=== PATIENT | male | born 1990 | race Caucasian/White ===

== ENCOUNTER 2020-07-27 18:05 | Emergency (ER) | payer MEDICAID, SELFPAY ==
[2020-07-27 18:25] VITALS: BP 141/79; PULSE 96; RESP 16; TEMP 36.9; O2SAT 97; BMI 25.0
--- NOTE | 2020-07-27 19:00 | ED.SKABFB ---
HPI - Skin/Abscess/Foreign Bdy General Chief complaint: Wound/Laceration Stated complaint: Finger Inj Time Seen by Provider: 07/27/20 18:59 Source: patient Mode of arrival: ambulatory Limitations: no limitations History of Present Illness HPI narrative: [place] right thumb just prior to arrival. Unsure of tetanus vaccination. MD complaint: foreign body Tetanus up to date: no Location: R hand (Right thumb) Severity: mild Relieving factors: none Treatments prior to arrival: none Related Data Previous Rx's Medication Instructions Recorded amoxicillin-pot clavulanate 1 tab PO Q12H 10 Days #20 tab 07/27/20 [Augmentin] Allergies Allergy/AdvReac Type Severity Reaction Status Date / Time No Known Allergies Allergy Unverified 06/04/20 19:07 [No Known Allergies*] Review of Systems Review of Systems: Constitutional: No Weight loss, No Fever, No Chills, No Night Sweats, No Fatigue, No Malaise ENT/Mouth: No Hearing loss, No Ear Pain, No Nasal Congestion, No Sinus Pain, No Hoarseness, No sore throat, No Rhinorrhea, No Swallowing Difficulty Eyes: No Eye Pain, No Swelling, No Redness, No Foreign Body, No Discharge, No Vision Changes Cardiovascular: No Chest Pain, No SOB Respiratory: No Cough, No Sputum, No Wheezing, No Smoke Exposure, No Dyspnea Musculoskeletal: No joint pain, No Myalgias, No Joint Swelling Skin: No Skin Lesions, No rash Neuro: No Weakness, No Numbness, No Paresthesias, No Loss of Consciousness, No Dizziness, No Headache Psych: No Anxiety/Panic, No Depression Heme/Lymph: No Bruising, No Bleeding,No Lymphadenopathy Endocrine: No Polyuria, No Polydipsia, No Temperature Intolerance Yes all other systems are reviewed and are negative [facility] Past Medical History Attestation statement: The following information was validated with the patient. Social History Social History Advance Directives: No Advance Directives Information Provided: No Physical Exam Vital Signs: Vital Signs: Last Vital Signs Temp 98.4 F 07/27/20 18:25 Pulse 96 07/27/20 18:25 Resp 16 07/27/20 18:25 BP 141/79 H 07/27/20 18:25 Pulse Ox 97 07/27/20 18:25 Body Mass Index 25.0 reviewed Const: General: cooperative and healthy appearing; No acute distress or intoxicated appearing Nutritional Appearance: average body habitus Orientation/consciousness: patient oriented x3 HENMT: Head: Yes normal to inspection Ears: hearing grossly normal bilaterally Eyes: General: appearance normal, both eyes and all related structures Visual Chris: normal visual chris by confrontation Neck: Neck: Yes normal visual inspection and No tender Thyroid: Thyroid normal Chest: Chest palpation & inspection: normal inspection of the chest Resp: Effort & Inspection: normal respiratory effort Cardio: Jugular venous distension: no JVD : General: Yes no CVA tenderness Back/Spine/Pelvis: Back: no CVA tenderness Skin: General skin exam: no rashes or lesions noted Neuro: General: patient oriented x3 Extrem: General: Yes normal to inspection Procedures Foreign Body Removal Site: right (Right thumb) Description of foreign body: fish hook Technique: manual removal (Digital block performed and fishhook easily fed through and removed with ease and fully intact.) and removal with forceps Confirmed by:: direct visualization Complications: none Post-procedure exam: awake, alert, normal BP, normal HR and normal O2 sat Neurovascular: normal distal pulse, normal capillary fill, no signs of compartment syndrome and other Discharge Plan Discharge Clinical Impression: Foreign body (FB) in soft tissue Patient Disposition: Home, Self-Care Instructions: Soft Tissue Foreign Body (ED) Additional Instructions: Monitor for any signs of infection including redness, swelling, discharge Take antibiotics as prescribed Today you had a fishhook removed from her right thumb and your started on empiric antibiotics meaning preventative Your given tetanus vaccination Return if any concerns or worse symptoms otherwise follow up with her primary care doctor as instructed Thank you Prescriptions: New amoxicillin-pot clavulanate [Augmentin] 875-125 mg tablet 1 tab PO Q12H 10 Days Qty: 20 RF: 0 Referrals: Camila Virk MD [Primary Care Provider] - 1 week
[2020-07-27] MEDS: Amoxicillin/Potassium Clav 875 MG TABLET PO (19:14)
== END 2020-07-27 19:36 | disposition home or self-care (01) ==
PROVIDERS: Emergency Provider Emergency Medicine; PCP Family Medicine
DX: S60.351A Superficial foreign body of right thumb, initial encounter (principal); S60.311A Abrasion of right thumb, initial encounter; M79.641 Pain in right hand; Z18.12 Retained nonmagnetic metal fragments; Z23 Encounter for immunization
CPT/HCPCS: 20520; 90471; 90715; 99283; 99284

== ENCOUNTER 2021-09-22 23:12 | Outpatient (REF) | payer OTHER, MEDICAID, SELFPAY ==
[2021-09-22 23:45] LABS: COVID-19 Test Negative (Negative)
== END 2021-09-22 23:13 | disposition home or self-care (01) ==
LOC: HO.LAB 23:12
PROVIDERS: Visit Provider Internal Medicine
DX: Z20.822 Contact with and (suspected) exposure to COVID-19 (principal)
CPT/HCPCS: 87635

== ENCOUNTER 2022-02-14 14:15 | Emergency (ER) | payer MEDICAID, SELFPAY ==
[2022-02-14 14:52] VITALS: BP 150/86; PULSE 95; RESP 18; TEMP 36.8; O2SAT 98; BMI 25.2
--- NOTE | 2022-02-14 14:55 | ED.GENADULT ---
HPI - General Adult General Chief complaint: Animal Bite Stated complaint: Animal Bite (Racoon) Hand 22 Hrs Ago Time Seen by Provider: 02/14/22 14:54 Source: patient Mode of arrival: ambulatory Limitations: no limitations History of Present Illness HPI narrative: Patient is a 31 year old male presenting to the emergency department today after being bit by a raccoon on the left hand. Patient states that there is a neighborhood raccoon that he is normally friendly with and sees during the day often however, approximately 22 hours ago, that raccoon charged him while he was trying to feed it. Patient states that he got bit/scratched on the left hand. Patient states he is not sure of his last tetanus shot. Patient denies any dizziness, lightheadedness, abdominal pain, nausea, vomiting, fever, chills, blurry vision, double vision, loss of vision, chest pain, difficulty breathing, shortness of breath, back pain, night sweats, pain with urination, increased urinary frequency, increased urinary urgency, blood in his urine or stool, syncope or a near syncopal episode, bowel incontinence, bladder incontinence, bowel retention, bladder retention, or any other complaints at this time.? Onset (ago): hour(s) Location: left and upper extremity Relieving factors: none Exacerbating factors: none Associated symptoms: denies other symptoms Treatments prior to arrival: none Related Data Previous Rx's Medication Instructions Recorded amoxicillin 875 mg-potassium 1 tab PO Q12H 10 Days #20 tab 07/27/20 clavulanate 125 mg tablet (Augmentin) amoxicillin 875 mg tablet 875 mg PO BID 7 Days #14 tab 02/14/22 Allergies Allergy/AdvReac Type Severity Reaction Status Date / Time No Known Allergies Allergy Verified 02/14/22 14:54 [No Known Allergies*] Review of Systems Constitutional: Constitutional: Reports no additional constitutional complaints, Denies chills, Denies fever(s) and Denies night sweats Eyes: Eyes: Reports no additional eye complaints, Denies blurry vision, Denies change in vision, Denies diplopia, Denies eye discharge, Denies loss of vision and Denies eye pain ENT: Denies dizziness Cardiovascular: Cardiovascular: Reports no additional cardiovascular complaints, Denies chest pain, Denies lightheadedness, Denies Loss of Consciousness and Denies dyspnea Respiratory: Respiratory: Reports no additional respiratory complaints and Denies dyspnea Gastrointestinal: Gastrointestinal: Reports no additional gastrointestinal complaints, Denies abdominal pain, Denies melena, Denies hematochezia, Denies change in bowel habits and Denies change in stool character Genitourinary: Genitourinary: Reports no additional male genitourinary complaints, Denies hematuria, Denies oliguria, Denies difficulty urinating, Denies dysuria, Denies urinary frequency, Denies urinary hesitancy, Denies urinary incontinence and Denies urinary urgency Musculoskeletal: Musculoskeletal: Reports no additional musculoskeletal complaints, Denies numbness and Denies tingling Neurologic: Denies dizziness, Denies loss of vision, Denies numbness and Denies tingling Psychiatric: Psychiatric: Reports no additional psychiatric complaints Endocrine: Endocrine: Reports no additional endocrine complaints Hematologic/Lymphatic: Hematologic/Lymphatic: Reports no additional hematologic/lymphatic complaints Allergic/Immunologic: Allergic/Immunologic: Reports no additional allergic/immunologic complaints PMFSH Past Medical History Attestation statement: The following information was validated with the patient. Source: old records reviewed Social History Social History Advance Directives: No Advance Directives Information Provided: No Physical Exam ED Vital Signs: Vital Signs - 24 hr 02/14/22 14:52 02/14/22 16:49 Temperature 98.3 F Pulse Rate 95 88 Respiratory Rate 18 16 Blood Pressure 150/86 H 140/82 H Pulse Oximetry 98 99 BMI result Body Mass Index 25.2 Const General: cooperative, no acute distress, alert and awake Nutritional Appearance: well nourished Orientation/consciousness: patient oriented x3 Limitations: no limitations [facility] Head: Yes normal to inspection and Yes atraumatic Ears: hearing grossly normal bilaterally and external ears normal General nose exam: Normal external nose present, no nasal discharge noted and no epistaxis Face and sinus: Yes normal facial exam, No abrasion and No laceration Mouth: Normal oral and palatal mucosa present, no drooling and no muffled voice Eyes General: appearance normal, both eyes and all related structures Periorbital: periorbital findings normal Eyelids: Yes eyelids normal Conjunctivae: conjunctivae normal Pupils: Equal, round and reactive pupils present EOM: EOMs intact bilaterally Neck Neck: Yes normal visual inspection, Yes full ROM and Yes no lymphadenopathy Chest Chest palpation & inspection: normal inspection of the chest Resp Effort & Inspection: normal respiratory effort and able to speak in complete sentences Auscultation: clear to auscultation bilaterally Cardio Rate: regular rate Rhythm: regular rhythm GI Inspection: Yes normal to inspection Neuro General: patient oriented x3 and moves all extremities Cranial nerves: Yes Equal, round and reactive pupils present Cognition (Neuro): normal cognition Motor exam (neuro): 5/5 motor strength present throughout Sensory Exam: Normal double simultaneous stimulation for sensation Coordination: [id number] test normal Extrem General: Yes normal to inspection, Yes full ROM and Yes capillary refill normal Psych Appearance: grossly normal Mental Status: mental status grossly normal Affect: normal affect Attitude: cooperative Thought process: Normal thought process present Thought content: Normal thought content present Insight: Good insight present (Psych) Medical Decision Making MDM Narrative Medical decision making narrative: Patient is a 31 year old male presenting to the emergency department today after a raccoon bite and scratch. Patient's physical exam was unremarkable. I did not visualize any bites or scratches to the patient's left hand however, the patient stated that they were very superficial. I explained my physical exam findings to the patient. I answered all questions asked by the patient. Patient was given rabies vaccination and brought up to date on tetanus. I stressed the importance of the patient taking his medication as prescribed. I stressed the importance of the patient following up with his primary care provider. I stressed the importance of the patient returning to the emergency department immediately if his symptoms were to worsen or if he were to develop any dizziness, shortness of breath, difficulty breathing, chest pain, blurry vision, loss of vision, nausea, vomiting, abdominal pain, fever, chills, back pain, or any other complaints. Patient verbalized agreement and understanding with this treatment plan and discharge. Differential Diagnosis Differential Diagnosis: raccoon bite Medical Records Medical records reviewed: Yes I reviewed the patient's medical records. Discharge Plan Discharge Clinical Impression: Rabies contact Patient Disposition: Home, Self-Care Instructions: Animal Bite (ED) Additional Instructions: Follow up with your primary care provider. Return to the emergency department immediately if your symptoms worsen or if you develop any dizziness, shortness of breath, difficulty breathing, chest pain, blurry vision, loss of vision, nausea, vomiting, abdominal pain, fever, chills, back pain, or any other complaints. Prescriptions: New amoxicillin 875 mg tablet 875 mg PO BID 7 Days Qty: 14 0RF No Action amoxicillin-pot clavulanate [Augmentin] 875-125 mg tablet 1 tab PO Q12H 10 Days Qty: 20 0RF Referrals: Camila Virk MD [Primary Care Provider] - Stand Alone Forms: Work/School Release Interventions: ED Discharge Assessment Last Done: 02/14/22 16:50 Discharge Date/Time: 02/14/22 16:50 Print Language: Slovenian
[2022-02-14] MEDS: LORazepam 1 MG TABLET PO (15:08)
[2022-02-14] MEDS: Rabies Immune Globulin/PF 900 UNIT/3 ML VIAL 1646 UNIT IM (16:09)
[2022-02-14] MEDS: Rabies Vaccine (PCEC)/PF 1 ML VIAL IM (16:10)
[2022-02-14 16:49] VITALS: BP 140/82; PULSE 88; RESP 16; O2SAT 99
--- NOTE | 2022-02-14 16:49 | PC.NURSE ---
rabies vaccine order set faxed to short stay. patient advised to call animal control.
== END 2022-02-14 16:50 | disposition home or self-care (01) ==
PROVIDERS: Emergency Provider Emergency Medicine; PCP Family Medicine
DX: S60.572A Other superficial bite of hand of left hand, initial encounter (principal); W53.81XA Bitten by other rodent, initial encounter; Y93.9 Activity, unspecified; Y92.9 Unspecified place or not applicable; Y99.9 Unspecified external cause status; Z20.3 Contact with and (suspected) exposure to rabies; Z79.899 Other long term (current) drug therapy
CPT/HCPCS: 90375; 90471; 90675; 96372; 99281; 99284

== ENCOUNTER 2022-02-17 07:13 | Outpatient (REF) | payer MEDICAID, SELFPAY | END 2022-02-17 07:14 | disposition home or self-care (01) | LOC: HO.MDS 07:13 | PROVIDERS: Visit Provider Physician Assistant Medical | DX: Z29.14 Encounter for prophylactic rabies immune globulin (principal); S61.452D Open bite of left hand, subsequent encounter; W55.51XD Bitten by raccoon, subsequent encounter; Z20.3 Contact with and (suspected) exposure to rabies | CPT/HCPCS: 90471; 90675 ==

== ENCOUNTER 2022-02-22 07:27 | Outpatient (REF) | payer MEDICAID, SELFPAY | END 2022-02-22 07:28 | disposition home or self-care (01) | LOC: HO.MDS 07:27 | PROVIDERS: Visit Provider Physician Assistant Medical | DX: Z29.14 Encounter for prophylactic rabies immune globulin (principal); S61.452D Open bite of left hand, subsequent encounter; W55.51XD Bitten by raccoon, subsequent encounter; Z20.3 Contact with and (suspected) exposure to rabies | CPT/HCPCS: 90471; 90675 ==

== ENCOUNTER 2022-03-01 07:14 | Outpatient (REF) | payer MEDICAID, SELFPAY | END 2022-03-01 07:15 | disposition home or self-care (01) | LOC: HO.MDS 07:14 | PROVIDERS: Visit Provider Physician Assistant Medical | DX: Z29.14 Encounter for prophylactic rabies immune globulin (principal); S60.572D Other superficial bite of hand of left hand, subsequent encounter; W53.81XD Bitten by other rodent, subsequent encounter; Z20.3 Contact with and (suspected) exposure to rabies | CPT/HCPCS: 90471; 90675 ==

== ENCOUNTER 2023-06-19 14:24 | Outpatient (AMB) | payer OTHER, SELFPAY ==
--- NOTE | 2023-06-19 14:30 | MHC.PC.OV ---
Vital Signs 06/19/23 14:31 Height 5 ft 11 in Weight 185 lb 2 oz BMI 25.8 BP 140/88 H Blood Pressure Location Rt brachial Position Sitting Pulse 96 Pulse Source Pulse Oximeter Pulse Oximetry (%) 99 Oxygen Delivery Method Room Air Intake Visit Reasons: Requesting physical-High Bp-med review Allergies No Known Allergies [No Known Allergies*] Allergy (Verified 06/19/23 14:32) Tobacco use date assessed: 06/19/23 Dental Screening Dental Screen Date: 06/19/23 Did you have a dental visit in the last 12 months?: Yes Did you have a dental problem in the last 6 months where you did not have access to dental care?: No Was dental information given to patient?: Patient has dentist HPI Requesting physical-High Bp-med review HPI Details New pt is here for a PE. Will order labs. Pt's blood pressure is elevated today, likely due to white-coat syndrome. Will have pt monitor his BP at home. Denies chest pain, shortness of breath, headache, dizziness, and blurred vision. Pt would like a therapist due to anxiety and depression. Will have team speak with pt. Denies any SI and HI. PFSH Family History Mother Mental health disorder Maternal Grandmother Mental health disorder Father Mental health disorder Paternal Uncle Mental health disorder Social History Patient Tobacco Use Status: Former Tobacco user Quit Date: 8-9 years ago e-Cigarette/Vaping Use: Never Used Second Hand Smoke Exposure: No service: Yes Current occupational status: employed Current occupation: [employer] Current occupational exposures/hazards: Yes Cognitive needs: No Hearing needs: No Vision needs: No Review of Systems Const Denies chills and Denies fever(s) Eyes Denies blurry vision ENT Denies vertigo, Denies dizziness and Denies sore throat Card Denies chest pain at rest, Denies chest pain with activity, Denies diaphoresis, Denies dyspnea and Denies dyspnea on exertion Resp Denies cough, Denies dyspnea, Denies dyspnea on exertion and Denies wheezing GI Denies abdominal pain, Denies melena, Denies hematochezia, Denies constipation, Denies diarrhea and Denies loose stools Denies hematuria Musc Denies numbness and Denies tingling Skin/Breast Denies lesions Neuro Denies vertigo, Denies dizziness, Denies numbness and Denies tingling Psych Reports anxiety, Reports depression, Denies homicidal ideation, Denies suicidal ideation and Denies other (substance abuse) Aller/Immun Denies wheezing Physical exam (Primary Care) Vital Signs: Last Vital Signs Pulse 96 06/19/23 14:31 BP 140/88 H 06/19/23 14:31 Pulse Ox 99 06/19/23 14:31 Oxygen Delivery Method Room Air 06/19/23 14:31 BMI result Body Mass Index 25.8 Tobacco/Smoking Status: Tobacco use Status Tobacco use date assessed 06/19/23 06/19/23 14:36 Patient Tobacco Use Status Former Tobacco user 06/19/23 14:36 e-Cigarette/Vaping Use Never Used 06/19/23 14:36 Const General: cooperative Nutritional Appearance: well nourished Orientation/consciousness: patient oriented x3 HENMT Head: Yes normal to inspection, Yes normocephalic and Yes atraumatic Ears: TM's normal bilaterally Eyes General: appearance normal, both eyes and all related structures Alignment and Position: alignment normal and position normal Neck Neck: Yes normal visual inspection and Yes no lymphadenopathy Thyroid: Thyroid normal Resp Effort & Inspection: normal respiratory effort Auscultation: clear to auscultation bilaterally Cardio Rate: regular rate Rhythm: regular rhythm Heart sounds: S1 normal heart sound present, S2 normal heart sound present and no murmurs GI Palpation (GI): Soft to palpation and nontender Auscultation: normal bowel sounds Male General Exam: Yes normal external exam Penis: normal penis Scrotum: scrotum normal, testes descended bilaterally and no inguinal hernias Testes: no testicular mass Skin Rashes: no rashes Neuro General: patient oriented x3, moves all extremities, no focal motor deficits and deep tendon reflexes 2+ bilaterally Romberg Test: Negative Psych Appearance: grossly normal Mental Status: mental status grossly normal Speech and movement: Normal speech and movement present Affect: normal affect Attitude: cooperative Thought process: Normal thought process present Thought content: Normal thought content present Insight: Good insight present (Psych) Judgement: Good judgement present (Psych) Assessment and Plan Assessment & Plan (1) White coat syndrome without diagnosis of hypertension: Code(s): R03.0 - Elevated blood-pressure reading, without diagnosis of hypertension Plan: Monitor BP at home (2) Physical exam: Code(s): Z00.00 - Encounter for general adult medical examination without abnormal findings Plan: Labs ordered (3) Anxiety and depression: Code(s): F41.9 - Anxiety disorder, unspecified; F32.A - Depression, unspecified Plan: had shayla speak with pt, labs ordered Plan The patient agreed to the use of a medical education coordinator for this encounter. Scribed for DONTA Albright-GEETA by Batsheva Butt medical education coordinator, on 06/19/2023 at 14:45 EST Orders: Orders Complete Blood Count Auto Diff Today Z00.00 - Encounter for general adult medical examination without abnormal findings UA CC w/rflx Micro + Cult Today Z00.00 - Encounter for general adult medical examination without abnormal findings Comprehensive [place]. Panel Fast Today Z00.00 - Encounter for general adult medical examination without abnormal findings TSH reflex Free T4 Today Z00.00 - Encounter for general adult medical examination without abnormal findings Lipid Panel Today Z00.00 - Encounter for general adult medical examination without abnormal findings Coding Level of Care Code New Pt Prev Care 18-39yr([id number] Diagnoses White coat syndrome without diagnosis of hypertension R03.0 Physical exam Z00.00 Anxiety and depression F41.9; F32.A
[2023-06-19 14:31] VITALS: BP 140/88; PULSE 96; O2SAT 99; BMI 25.8
== END 2023-06-19 15:14 | disposition home or self-care (01) ==
PROVIDERS: Visit Provider Nurse Practitioner Family
DX: R03.0 Elevated blood-pressure reading, without diagnosis of hypertension (principal); Z00.00 Encounter for general adult medical examination without abnormal findings; F41.9 Anxiety disorder, unspecified; F32.A Depression, unspecified
CPT/HCPCS: 99385

== ENCOUNTER 2023-08-16 00:05 | Emergency (ER) | payer OTHER, SELFPAY ==
--- NOTE | ~2023-08-16 | XR_ITS ---
EXAMINATION: XR ABDOMEN KUB CLINICAL INDICATION: Constipation versus small bowel obstruction COMPARISON: None available. TECHNIQUE: AP view of the abdomen. FINDINGS: The bowel gas pattern is normal with no evidence of ileus or obstruction. No unusual soft tissue calcifications are noted. The bones are unremarkable. XR/XR KUB IMPRESSION: Unremarkable examination.
[2023-08-16 00:06] VITALS: BP 137/94; PULSE 86; RESP 18; TEMP 37.1; O2SAT 98; BMI 26.4
--- OUTSIDE RECORDS SUMMARY | 2023-08-16 00:58 | XMS_ITS | Continuity of Care Document ---
Author Name Unknown Organization [facility] Address [address] [place] [address]- Care Team Providers Care Flight Paramedic Name Role Phone Camila Virk MD Primary Care Physician Encounter [facility] [id number] Date(s): [facility] [address] [place] [address]- Attending Physician: AdmGaviota schaeffer Admitting Physician: AdmtrGaviota Referring Physician: Admtr, Ar8 Allergies, Adverse Reactions, Alerts Substance Reaction Severity Status NKA Active Immunizations Given and Recorded Vaccine Date Status Refusal Reason influenza virus vaccine, inactivated 1 06/19/19 Gi issac influenza virus vaccine, inactivated 2 08/24/17 Re corded influenza virus vaccine, inactivated 08/09/15 Give n influenza virus vaccine, inactivated 3 07/25/13 Gi issac influenza virus vaccine, inactivated 4 10/18/12 Gi issac Afluria (oldterm) 09/18/18 Recorded Measles/Mumps/Rubella Virus Vaccine 5 08/12/15 Giv en hepatitis B adult vaccine 08/10/15 Given tetanus/diphtheria/pertussis, acel(Tdap) 6 07/10/09 Given Not Given Vaccine Date Status Refusal Reason pneumococcal 23-valent vaccine 06/17/14 Not Given Patient Refuses 1Result Comment: [facility]# [id number] 2Location History: [facility] 3Admin Note: DECLINED 4Admin Note: VIS Given Flulaval 5Result Comment: [08/12/2015] [facility]# [id number] EXP DATE 11/20/2016 6Admin Note: per records Medications Ambien 10 mg oral tablet 1 tablet = 10 mg, By Mouth, Daily at bedtime, PRN for sleep, for 30 days, dx: insomnia, # 30 tablet, 5 Refills, Acute 07/14/20 15:58:00 EDT, 01/16/20 15:58:00 EDT, Tablet, [facility] #[id number], 180, cm, 09/03/19 8:43:00 EST, Height Start Date: 01/16/20 Stop Date: 07/14/20 Status: Ordered Ambien 10 mg oral tablet 1 tablet = 10 mg, By Mouth, Daily at bedtime, PRN for sleep, for 30 days, dx: insomnia, # 30 tablet, 5 Refills, Acute 01/16/20 15:58:03 EDT, 07/20/19 15:58:03 EDT, Tablet Start Date: 07/20/19 Stop Date: 01/16/20 Status: Ordered citalopram 40 mg oral tablet 40 mg, 1, tablet, By Mouth, Daily, # 30 tablet, Refills 11, Tot. Refills 11, Maintenance, 06/19/19 10:21:28 EDT, Route to Pharmacy Electronically, [id number], [facility] #[id number] Start Date: 06/19/19 Status: Ordered diclofenac sodium 50 mg oral delayed release tablet 1 tablet = 50 mg, By Mouth, 3 times a day, with food; do not take with other NSAIDs (ex.: ibuprofen, aleve), # 42 tablet, 0 Refills, Maintenance, 09/03/19 9:25:34 EST, EC Tablet, [facility]#[id number], 180, cm, 09/03/19 8:43:49 EST, Height Start Date: 09/03/19 Stop Date: 09/17/19 Status: Ordered Problem List Condition Effective Dates Status Health Status Inform ant Anxiety(Confirmed) Active Attention deficit hyperactiv ity disorder(Confirmed) Active Exposure to hepatitis C(Confirmed) Active H/O: alcohol abuse(Confirmed) Active Insomnia, Unspecified(Confirmed) Active Opiate abuse, episodic(Confirmed) Active Panic disorder without agora phobia with moderate panic attacks(Confirmed) Active Social History Social History Type Response Smoking Status Former smoker entered on: 08/28/17 Sex
--- OUTSIDE RECORDS SUMMARY | 2023-08-16 00:58 | XMS_ITS | Continuity of Care Document ---
Author Name Unknown [facility] Address [address] [place] [address]- Care Team Providers Care Substation Manager Name Role Phone Camila Virk MD Primary Care Physician Encounter [facility] Date(s): 08/02/21 - 08/09/21 [facility] [address] [place], [place] [id number]- Attending Physician: Camila Virk MD Allergies, Adverse Reactions, Alerts Substance Reaction Severity [...] 06/17/14 Not Given Patient Refuses 1Result Comment: [facility]# [id number] 2Location History: [facility] 3Admin Note: DECLINED 4Admin Note: VIS Given Flulaval 5Result Comment: [08/12/2015] [facility]# [id number] EXP DATE 11/20/2016 6Admin Note: per records Medications Ambien 5 mg oral tablet 1 tablet = 5 mg, By Mouth, Daily at bedtime, PRN as needed for insomnia, for 30 days, # 30 tablet, 2 Refills, Acute 10/31/21 10:59:00 EST, 08/02/21 10:59:00 EST, Tablet, [facility] #[id number], Partial fill upon patient request if the prescriptio... Start Date: 08/02/21 Stop Date: 10/31/21 Status: Ordered citalopram 40 mg oral tablet 40 mg, 1, tablet, By Mouth, Daily, # 30 tablet, Refills 5, Tot. Refills 5, Maintenance, 03/29/21 10:22:00 EDT, Route to Pharmacy Electronically, [facility] #[id number], 180, cm, 03/29/21 9:52:00EDT, Height Start Date: 03/29/21 Status: Ordered Multivitamin Daily, 0 Refills, Maintenance, 08/02/21 10:21:00 EST, Partial fill upon patient request if the prescription is for a schedule II opioid drug. Start Date: 08/02/21 Status: Ordered Problem List Condition Effective Dates Status Health Status Inform ant Anxiety(Confirmed) Active Attention deficit hyperactiv ity disorder(Confirmed) Active Exposure to hepatitis C(Confirmed) Active H/O: alcohol abuse(Confirmed) Active Insomnia, Unspecified(Confirmed) Active Opiate abuse, episodic(Confirmed) Active Panic disorder without agora phobia with moderate panic attacks(Confirmed) Active Vital Signs Most recent to oldest [Reference Range]: 1 Height 180 cm (08/02/21 10:20 AM) Social History Social History Type Response Smoking Status Former smoker entered on: 08/28/17 Sex
--- OUTSIDE RECORDS SUMMARY | 2023-08-16 00:58 | XMS_ITS | Continuity of Care Document ---
Author Name Unknown Organization [facility] Address [address] [place] [address]- Care Team Providers Care Director Of Land Acquisition Name Role Phone Camila Virk MD Primary Care Physician Encounter [facility] Date(s): 09/26/22 - 10/26/22 [facility] [address] [place] [address]- [place] Allergies, Adverse Reactions, Alerts No Known Allergies Immunizations Given and Recorded Vaccine Date Status [...] Patient Refuses 1Result Comment: [facility]# [id number] 2Location History: [facility] EMPLOYER 3Admin Note: DECLINED 4Admin Note: VIS Given Flulaval 5Result Comment: [08/12/2015] [facility]# [id number] EXP DATE 11/20/2016 6Admin Note: per records Medications Ambien 10 mg oral tablet 1 tablet = 10 mg, By Mouth, Daily at bedtime, PRN for sleep, for 30 days, dx: insomnia, # 30 tablet, 1 Refills, Acute 11/22/22 8:52:00 EST, 09/23/22 8:52:00 EST, Tablet, [facility] #[id number], 180, cm, 09/05/22 14:50:00 EST, Height Start Date: 09/23/22 Stop Date: 11/22/22 Status: Ordered Ambien 10 mg oral tablet 1 tablet = 10 mg, By Mouth, Daily at bedtime, PRN for sleep, for 30 days, dx: insomnia, # 30 tablet, 1 Refills, Acute 11/25/22 15:46:00 EST, 09/26/22 15:46:00 EST, Tablet, [facility] #[id number], 180, cm, 09/05/22 14:50:00 EST, Height Start Date: 09/26/22 Stop Date: 11/25/22 Status: Ordered citalopram 20 mg oral tablet 1 tablet = 20 mg, By Mouth, Daily, # 90 tablet, 1 Refills, Maintenance, 10/04/22 8:09:00 EST, [id number], Partial fill upon patient request if the prescription is for a schedule II opioid drug., 180, cm, 09/05/22 14:50:00 EST, Height Start Date: 10/04/22 Stop Date: 04/02/23 Status: Ordered Multivitamin Daily, 0 Refills, Maintenance, 08/02/21 10:21:00 EST, Partial fill upon patient request if the prescription is for a schedule II opioid drug. Start Date: 08/02/21 Status: Ordered Problem List Condition Confirmation Course Effective Dates Status H ealth Status Informant Anxiety Confirmed Active Attention deficit hyperactivity disorder Confirmed Active Exposure to hepatitis C Confirmed Active H/O: alcohol abuse Confirmed Active Insomnia, Unspecified Confirmed Active Opiate abuse, episodic Confirmed Active Panic disorder without agoraphobia with moderate panic attacks Confirmed Active Social History Social History Type Response Smoking Status Former smoker entered on: 08/28/17 Sex Patient Care team information Care Team Personnel Name: Camila Virk MD Position: [facility] Primary Care Physician Member Role: PCP Address: Address: [address] [place] [address] [place] [address]- Name: Taina Randhawa RN Position: [facility] W/ Raz Member Role: Primary Care Nurse Name: Laura Aranda RN Position: [facility] RN Member Role: Primary Care Nurse Care Team Related Persons Name: WENDIE CORDOVA Address: home [address] [place] [address] Name: PAVAN LLANES Address: home [address] [place] [address] Name: KIP LLANES Address: home [address] [place] [address]
--- OUTSIDE RECORDS SUMMARY | 2023-08-16 00:58 | XMS_ITS | Continuity of Care Document ---
Author Name Unknown Organization [facility] Address [address] [place] [address]- Care Team Providers Care Peanut Sheller Name Role Phone Camila Virk MD Primary Care Physician Encounter [facility] Date(s): 12/19/19 - 12/26/19 [facility] [address] [place] [address]- Attending Physician: Camila Virk MD Allergies, Adverse [...] 06/17/14 Not Given Patient Refuses 1Result Comment: [facility]# [id number] 2Location History: [facility] EMPLOYER 3Admin Note: DECLINED 4Admin Note: VIS Given Flulaval 5Result Comment: [08/12/2015] [facility]# [id number] EXP DATE 11/20/2016 6Admin Note: per records Medications Ambien 10 mg oral tablet 1 tablet = 10 mg, By Mouth, Daily at bedtime, PRN for sleep, for 30 days, dx: insomnia, # 30 tablet, 5 Refills, Acute 07/14/20 15:58:00 EDT, 01/16/20 15:58:00 EDT, Tablet, [facility] #[id number], 180, cm, 09/03/19 8:43:00 EST, Height Start [...] 06/19/19 10:21:28 EDT, Route to Pharmacy Electronically, [id number], [facility] #[id number] Start Date: 06/19/19 Status: Ordered diclofenac sodium 50 mg oral delayed release tablet 1 tablet = 50 mg, By Mouth, 3 times a day, with food; do not take with other NSAIDs (ex.: ibuprofen, aleve), # 42 tablet, 0 Refills, Maintenance, 09/03/19 9:25:34 EST, EC Tablet, [facility][id number], 180, cm, 09/03/19 8:43:49 EST, Height Start [...]
--- OUTSIDE RECORDS SUMMARY | 2023-08-16 00:58 | XMS_ITS | Continuity of Care Document ---
Author Name Unknown Organization [facility] Address [address] [place] [address]- Care Team Providers Care Suppression Crew Leader Name Role Phone Camila Virk MD Primary Care Physician Encounter [facility] Date(s): 08/27/19 - 12/25/19 [facility] [address] [place] [address]- [facility] Attending Physician: Cortez Davenport MD Admitting Physician: Cortez Davenport MD Referring Physician: Camila Virk MD Allergies, Adverse Reactions, [...] Not Given Patient Refuses 1Result Comment: [facility]# [id number] 2Location History: [facility] EMPLOY[facility] 3Admin Note: DECLINED 4Admin Note: VIS Given Flulaval 5Result Comment: [08/12/2015] [facility]# [id number] EXP DATE 11/20/2016 6Admin Note: per records Medications Ambien 10 mg oral tablet 1 tablet = 10 mg, By Mouth, Daily at bedtime, PRN for sleep, for 30 days, dx: insomnia, # 30 tablet, 5 Refills, Acute 10/27/20 15:58:00 EDT, 01/16/20 15:58:00 EDT, Tablet, [facility] #[id number], 180, cm, 09/03/19 8:43:00 EST, Height Start [...] 06/19/19 10:21:28 EDT, Route to Pharmacy Electronically, [id number], [facility] #[id number] Start Date: 06/19/19 Status: Ordered diclofenac sodium 50 mg oral delayed release tablet 1 tablet = 50 mg, By Mouth, 3 times a day, with food; do not take with other NSAIDs (ex.: ibuprofen, aleve), # 42 tablet, 0 Refills, Maintenance, 09/03/19 9:25:34 EST, EC Tablet, [facility]58812, 180, cm, 09/03/19 8:43:49 EST, Height Start [...]
--- OUTSIDE RECORDS SUMMARY | 2023-08-16 00:58 | XMS_ITS | Continuity of Care Document ---
Author Name Unknown Organization [facility] Address [address] [place] [address]- Care Team Providers Care Command Center Officer Name Role Phone Camila Virk MD Primary Care Physician Encounter [facility] Date(s): 08/02/21 - 09/01/21 [facility] [address] [place] [address]- Attending Physician: Gaviota Moe Admitting Physician: Gaviota Moe Referring Physician: AdmtrGaviota Allergies, Adverse Reactions, Alerts Substance Reaction Severity [...] 06/17/14 Not Given Patient Refuses 1Result Comment: [facility]# [id number] 2Location History: [facility]PL[facility] 3Admin Note: DECLINED 4Admin Note: VIS Given Flulaval 5Result Comment: [08/12/2015] [facility]# [id number] EXP DATE 11/20/2016 6Admin Note: per records Medications Ambien 5 mg oral tablet 1 tablet = 5 mg, By Mouth, Daily at bedtime, PRN as needed for insomnia, for 30 days, # 30 tablet, 2 Refills, Acute 02/13/22 10:59:00 EST, 08/02/21 10:59:00 EST, Tablet, [facility] #[id number], Partial fill upon patient request if the prescriptio... Start Date: 08/02/21 Stop Date: 10/31/21 Status: Ordered citalopram 40 mg oral tablet 40 mg, 1, tablet, By Mouth, Daily, # 30 tablet, Refills 5, Tot. Refills 5, Maintenance, 03/29/21 10:22:00 EDT, Route to Pharmacy Electronically, [facility] #[id number], 180, cm, 03/29/21 9:52:00EDT, Height Start Date: [...]
--- OUTSIDE RECORDS SUMMARY | 2023-08-16 00:58 | XMS_ITS | Continuity of Care Document ---
Author Name Unknown Organization [facility] Address [address] [place] [address]- Care Team Providers Care Wireless Store Manager Name Role Phone Sully DAY, Camila Lagos Primary Care Physician Encounter [facility] Date(s): 03/29/21 - 04/28/21 [facility] [address] [place] [address]- Attending Physician: Gaviota Moe Admitting Physician: AdmGaviota schaeffer Referring Physician: AdmtrGaviota Allergies, Adverse Reactions, Alerts [...] 06/17/14 Not Given Patient Refuses 1Result Comment: [facility]# [id number] 2Location History: [facility] EMPLOYER 3Admin Note: DECLINED 4Admin Note: VIS Given Flulaval 5Result Comment: [08/12/2015] [facility]# [id number] EXP DATE 11/20/2016 6Admin Note: per records Medications citalopram 40 mg oral tablet 40 mg, 1, tablet, By Mouth, Daily, # 30 tablet, Refills 5, Tot. Refills 5, Maintenance, 03/29/21 10:22:00 EDT, Route to Pharmacy Electronically, [facility] #[id number], 180, cm, 03/29/21 9:52:00EDT, Height Start Date: 03/29/21 Status: Ordered zolpidem 10 mg oral tablet 1 tablet = 10 mg, By Mouth, Daily at bedtime, PRN as needed for insomnia, for 20 days, # 20 tablet,2 Refills, Acute 05/28/21 10:24:00 EDT, 03/29/21 10:24:00 EDT, Tablet, [facility] #[id number],Partial fill upon patient request if the prescripti... Start Date: 03/29/21 Stop Date: 05/28/21 Status: Ordered Problem List Condition Effective Dates [...]
--- OUTSIDE RECORDS SUMMARY | 2023-08-16 00:58 | XMS_ITS | Continuity of Care Document ---
Author Name Unknown Organization [facility] Address [address] [place] [address]- Care Team Providers Care Servomechanism Designer Name Role Phone Camila Virk MD Primary Care Physician Encounter [facility] Date(s): 09/05/22 - 10/05/[facility] [address] [place] [address]- Attending Physician: Gaviota Moe Admitting Physician: Gaviota Moe Referring Physician: AdmtrGaviota Allergies, Adverse Reactions, Alerts No Known Allergies [...] 06/17/14 Not Given Patient Refuses 1Result Comment: [facility]# [id number] 2Location History: [facility] EMPLOYER 3Admin Note: DECLINED 4Admin Note: VIS Given Flulaval 5Result Comment: [08/12/2015] [facility]# [id number] EXP DATE 11/20/2016 6Admin Note: per records Medications Ambien 10 mg oral tablet 1 tablet = 10 mg, By Mouth, Daily at bedtime, PRN for sleep, for 30 days, dx: insomnia, # 30 tablet, 1 Refills, Acute 11/22/22 8:52:00 EST, 09/23/22 8:52:00 EST, Tablet, [facility] #[id number], 180, cm, 09/05/22 14:50:00 EST, Height Start Date: 09/23/22 Stop Date: 11/22/22 Status: Ordered Ambien 10 mg oral tablet 1 tablet = 10 mg, By Mouth, Daily at bedtime, PRN for sleep, for 30 days, dx: insomnia, # 30 tablet, 1 Refills, Acute 11/25/22 15:46:00 EST, 09/26/22 15:46:00 EST, Tablet, [facility] #[id number], 180, cm, 09/05/22 14:50:00 EST, Height Start Date: 09/26/22 Stop Date: 11/25/22 Status: Ordered citalopram 20 mg oral tablet 1 tablet = 20 mg, By Mouth, Daily, # 90 tablet, 1 Refills, Maintenance, 10/04/22 8:09:00 EST, [facility] #[id number], Partial fill upon patient request if the [...] Team Personnel Name: Camila Virk MD Position: [facility] Primary Care Physician Member Role: PCP Address: Address: [address] [place] [address] [place] [address]- Name: Taina Randhawa RN Position: [facility] MR W/ Merge Member Role: Primary Care Nurse Name: Laura Aranda RN Position: [facility] RN Member Role: Primary Care Nurse Care Team Related Persons Name: WENDIE CORDOVA Address: home [address] [place] [address] Name: PAVAN LLANES Address: home [address] [place] [address] Name: KIP LLANES Address: [place] [address]
--- OUTSIDE RECORDS SUMMARY | 2023-08-16 00:58 | XMS_ITS | Continuity of Care Document ---
Author Name Unknown Organization [facility] Adult Wi d[facility] Address [address] [place] [address]- Care Team Providers Care Home Office Claim Specialist Name Role Phone Camila Virk MD Primary Care Physician [phone] Encounter [facility] Date(s): 02/16/21 - 03/18/21 [facility] Adult Medicine [address] [place], [place] [address] Allergies, Adverse Reactions, Alerts Substance Reaction Severity [...] Refuses 1Result Comment: [facility]# [id number] 2Location History: [facility] EMPLOYER 3Admin Note: DECLINED 4Admin Note: VIS Given Flulaval 5Result Comment: [08/12/2015] [facility]# [id number] EXP DATE 11/20/2016 6Admin Note: per records Medications Ambien 10 mg oral tablet 1 tablet = 10 mg, By Mouth, Daily at bedtime, PRN for sleep, for 30 days, dx: insomnia, # 30 tablet, 0 Refills, Acute 03/19/21 10:01:00 EDT, 02/17/21 10:01:00 EDT, Tablet, [facility][id number], 180, cm, 06/22/20 14:22:00 EDT, Height Start Date: 02/17/21 Stop Date: 03/19/21 Status: Ordered citalopram 40 mg oral tablet 40 mg, 1, tablet, By Mouth, Daily, # 30 tablet, Refills 5, Tot. Refills 5, Maintenance, 05/28/20 14:12:00 EDT, Route to Pharmacy Electronically, [facility] #[id number], 180, cm, 09/03/19 8:43:00EST, Height Start Date: 05/28/20 Status: Ordered diclofenac sodium 50 mg oral delayed release tablet 1 tablet = 50 mg, By Mouth, 3 times a day, with food; do not take with other NSAIDs (ex.: ibuprofen, aleve), # 42 tablet, 0 Refills, Maintenance, 09/03/19 9:25:34 EST, EC Tablet, [facility][id number], 180, cm, 09/03/19 8:43:49 EST, Height Start [...]
--- NOTE | 2023-08-16 00:59 | ED.ABDPAIN ---
HPI - Abdominal Pain General Chief Complaint: Abdominal Pain Stated Complaint: unable to defecate Time Seen by Provider: 08/16/23 00:58 Source: patient Mode of arrival: ambulatory Limitations: no limitations History of Present Illness HPI narrative: Patient History of anxiety on Sublocade for substance abuse with history of chronic constipation comes here for 2 weeks of feeling constipated having only small bowel moved no nausea no vomit no significant abdominal pain Related Data Previous Rx's Medication Instructions Recorded bisacodyl 5 mg tablet,delayed 10 mg (2 x 5 mg) PO BEDTIME PRN 08/16/23 release (Dulcolax (bisacodyl)) constipation #30 tabs magnesium hydroxide 400 mg/5 mL 15 ml PO BEDTIME PRN constipation 08/16/23 oral suspension (Milk of Magnesia) #355 mL Allergies Allergy/AdvReac Type Severity Reaction Status Date / Time No Known Allergies Allergy Verified 08/14/23 16:34 [No Known Allergies*] Review of Systems Review of Systems Yes all other systems are reviewed and are negative [facility] Family History Family History Mother Mental health disorder Maternal Grandmother Mental health disorder Father Mental health disorder Paternal Uncle Mental health disorder Social History Social History Patient Tobacco Use Status: Former Tobacco user Quit Date: 8-9 years ago e-Cigarette/Vaping Use: Never Used Second Hand Smoke Exposure: No Advance Directives: No Advance Directives Information Provided: No service: Yes Current occupational status: employed Current occupation: [employer] Current occupational exposures/hazards: Yes Cognitive needs: No Hearing needs: No Vision needs: No Physical Exam ED Vital Signs: Vital Signs - 24 hr 08/16/23 00:06 Temperature 98.8 F Pulse Rate 86 Respiratory Rate 18 Blood Pressure 137/94 H Pulse Oximetry 98 Oxygen Delivery Method Room Air BMI result Body Mass Index 26.4 Appearance: Alert. Oriented X3. No acute distress. ENT: Pharynx normal. Oral Mucosa moist Neck: Normal inspection. Neck supple. CVS: Normal heart rate and rhythm. Pulses normal. Respiratory: No respiratory distress. Equal air entry bilateral, Abdomen: Soft and nontender. Bowel sounds are present, no mass palpable, no CVA tenderness rectal: Empty no stool palpable Skin: Skin warm and dry. Normal skin color. Normal skin turgor. Medical Decision Making Medical Decision Making MDM Narrative: Patient's constipation advised take milk a magnesia and Dulcolax Independent Interpretation I performed an independent interpretation of an: Plain X-Ray Radiology Impression Discussion of test interpretation with radiology: I have reviewed the radiologist's reading. Medications Administered Discontinued Medications Generic Name Dose Route Start Last Admin Trade Name Freq PRN Reason Stop Dose Admin Bisacodyl 10 mg 08/16/23 01:00 08/16/23 01:16 Bisacodyl 5 Mg Tablet.Dr PO 08/16/23 01:01 10 mg ONCE ONE Administration Magnesium Hydroxide 30 ml 08/16/23 01:00 08/16/23 01:16 Milk Of Magnesia 30 Ml Oral.Susp PO 08/16/23 01:01 30 ml ONCE ONE Administration Discharge Plan Discharge Clinical Impression: Constipation Patient Disposition: Home, Self-Care Instructions: Constipation (ED) Additional Instructions: Take MiraLax once or twice a day for constipation Take Dulcolax if severe constipation Prescriptions: New magnesium hydroxide [Milk of Magnesia] 400 mg/5 mL suspension 15 ml PO BEDTIME PRN (Reason: constipation) Qty: 355 0RF bisacodyl [Dulcolax (bisacodyl)] 5 mg tablet,delayed release (DR/EC) 10 mg PO BEDTIME PRN (Reason: constipation) Qty: 30 0RF Discharge Date/Time: 08/16/23 01:22
--- OUTSIDE RECORDS SUMMARY | 2023-08-16 00:59 | XMS_ITS | Continuity of Care Document ---
Author Name Unknown Organization [facility] Address [address] [place] [address]- Care Team Providers Care Bill Board Poster Name Role Phone Sully DAY, Camila Lagos Primary Care Physician [phone] Encounter [facility] Date(s): 09/03/19 - 09/13/19 [facility] Adult Medicine [address] [place] [address]- Attending Physician: Gaviota Moe Admitting Physician: Gaviota [...] 06/17/14 Not Given Patient Refuses 1Result Comment: [facility]# [id number] 2Location History: [facility] EMPLOYER 3Admin Note: DECLINED 4Admin Note: VIS Given Flulaval 5Result Comment: [08/12/2015] [facility]# [id number] EXP DATE 11/20/2016 6Admin Note: per records [...] 06/19/19 10:21:28 EDT, Route to Pharmacy Electronically, [id number], [facility] #[id number] Start Date: 06/19/19 Status: Ordered diclofenac sodium 50 mg oral delayed release tablet 1 tablet = 50 mg, By Mouth, 3 times a day, with food; do not take with other NSAIDs (ex.: ibuprofen, aleve), # 42 tablet, 0 Refills, Maintenance, 09/03/19 9:25:34 EST, EC Tablet, [facility][id number], 180, cm, 09/03/19 8:43:49 EST, Height Start [...]
--- OUTSIDE RECORDS SUMMARY | 2023-08-16 00:59 | XMS_ITS | Continuity of Care Document ---
Author Name Unknown Organization [facility] Address [address] [place] [address]- Care Team Providers Care Senior Payroll Administrator Name Role Phone Sully DAY, Camila Lagos Primary Care Physician [place] [facility] [place] 11/25/19 - 12/05/19 [facility] [address] [place] [address]- [facility] Attending Physician: Gaviota Moe Admitting Physician: AdmGaviota [...] 06/17/14 Not Given Patient Refuses 1Result Comment: [facility]# [id number] 2Location History: [facility] EMPLOYER 3Admin Note: DECLINED 4Admin Note: VIS Given Flulaval 5Result Comment: [08/12/2015] [facility]# [id number] EXP DATE 11/20/2016 6Admin Note: per records [...] 06/19/19 10:21:28 EDT, Route to Pharmacy Electronically, [id number], [facility] #[id number] Start Date: 06/19/19 Status: Ordered diclofenac sodium 50 mg oral delayed release tablet 1 tablet = 50 mg, By Mouth, 3 times a day, with food; do not take with other NSAIDs (ex.: ibuprofen, aleve), # 42 tablet, 0 Refills, Maintenance, 09/03/19 9:25:34 EST, EC Tablet, [facility][id number], 180, cm, 09/03/19 8:43:49 EST, Height Start [...]
--- OUTSIDE RECORDS SUMMARY | 2023-08-16 00:59 | XMS_ITS | Continuity of Care Document ---
Author Name Unknown Organization [facility] Adult [facility] Address [address] [place] [address]- Care Team Providers Care Pediatric Dietician Name Role Phone Camila Virk MD Primary Care Physician [facility] Date(s): 09/05/22 - [facility] [address] [place], [place] [address]- Attending Physician: Camila Virk MD Allergies, Adverse Reactions, Alerts No Known Allergies [...] 06/17/14 Not Given Patient Refuses 1Result Comment: [facility]# [id number] 2Location History: [facility] EMPLOYER 3Admin Note: DECLINED 4Admin Note: VIS Given Flulaval 5Result Comment: [08/12/2015] [facility]# [id number] EXP DATE 11/20/2016 6Admin Note: per records Medications Ambien 10 mg oral tablet 1 tablet = 10 mg, By Mouth, Daily at bedtime, PRN for sleep, for 30 days, dx: insomnia, # 30 tablet, 1 Refills, Acute 11/22/22 8:52:00 EST, 09/23/22 8:52:00 EST, Tablet, [facility] #[id number], 180, cm, 09/05/22 14:50:00 EST, Height Start Date: 09/23/22 Stop Date: 11/22/22 Status: Ordered Ambien 10 mg oral tablet 1 tablet = 10 mg, By Mouth, Daily at bedtime, PRN for sleep, for 30 days, dx: insomnia, # 30 tablet, 0 Refills, Acute 09/23/22 8:52:00 EST, 08/24/22 8:52:00 EST, Tablet, [facility] #[id number], 180, cm, 04/07/22 7:51:00 EDT, Height Start Date: 08/24/22 Stop Date: 09/23/22 Status: Ordered citalopram 20 mg oral tablet 1 tablet = 20 mg, By Mouth, Daily, # 90 tablet, 1 Refills, Maintenance, 10/04/22 8:09:00 EST, [facility] #73548, Partial fill upon patient request if the [...] agoraphobia with moderate panic attacks Confirmed Active Vital Signs Most recent to oldest [Reference Range]: 1 Height 180 cm (09/05/22 2:50 PM) Social History Social History Type Response Smoking Status Former smoker entered on: 08/28/17 Sex Note * Mary Rosado MA: PERFORM, SIGN, VERIFY Event Display: Patient Education/Instruction Authored Date: [id number] [facility] *BMP Quab Adlt Med Bltn Clinical Summary Name ANA SEN Age 32 Years 1990 PCP Camila Virk MD PCP [facility]# [phone] Visit Date 09/05/2022 14:49:00 Additional Instructions: Scheduled Appointments?? Future Appointments ?No Future Appointments Scheduled Follow-Up Instructions ?? Diagnosis Medications: Please continue your medications until treatment is completed or stopped by your provider. Discuss any questions related to medications with your provider. Medications to Continue Taking That Have Changed [facility][id number], [address] [place] [phone], [phone] - Citalopram (citalopram 20 mg oral tablet) 1 tab(s) Oral Daily for 90 Days. Refills: 1. Next Dose: - Zolpidem (Ambien 10 mg oral tablet) 1 tab(s) Oral Daily at Bedtime as needed for sleep for 30 Days. dx: insomnia. Refills: 1. Next Dose: - Zolpidem (Ambien 10 mg oral tablet) 1 tab(s) Oral Daily at Bedtime as needed for sleep for 30 Days. dx: insomnia. Refills: 0. Next Dose: Medications to Continue with No Changes These medications were not printed or sent to your pharmacy Multivitamin Daily. Next Dose: Allergy Info:?? NKA Medications Given This Visit Future Orders ?No future orders Vital Signs Height 180 cm Weight BMI Blood Pressure / Temperature Pulse Rate Respiratory Rate 02 Sat Mode of Delivery / You can now view a summary of your hospital visit from the comfort of your home through a free online portal called [employer]. [employer] is a website that allows you to securely view your medical information including discharge summary, medications and follow-up visits. ??You can alsosend a secure electronic message to your doctor???s office to request appointments, renew medications or just ask a question. You can enroll at [email or web address] or register during your next office visit. Disclaimer:?? The information provided is of a general nature and is intended to be used in conjunction with the recommendations and advice of your health care practitioner. ??Every effort has been made to ensure that the information provided is accurate and complete at the time it is provided to you however, as your needs change, or, as new ??information becomes available, different or additional instructions may be required. If you have questions, please consult with your primary care provider or pharmacist, as appropriate. ??This information is not intended to serve as substitution for assessment and evaluation by a qualified health care provider. If you do not have a primary care provider, you may find a [facility] provider by calling [facility] at [phone]. For information about the plan of care including goals and instructions for your diagnosis, please see the patient education orders section of this document. Patient Education Materials?? The content of this educational material or handout may have been modified, supplemented, or adapted from its original content and format to support your individualized medical care. Patient Care team information Care Team Personnel Name: Camila Virk MD Position: [facility] Primary Care Physician Member Role: PCP Address: Address: [address] [place] [address]- Name: Taina Randhawa RN Position: [facility] W/ Raz Member Role: Primary Care Nurse Name: Laura Aranda RN Position: [facility] RN Member Role: Primary Care Nurse Care Team Related Persons Name: WENDIE CORDOVA Address: home [address] [place] [address] Name: PAVAN LLANES Address: home [address] [place] [address] Name: KIP LLANES Address: home [address] [place] [address]
--- OUTSIDE RECORDS SUMMARY | 2023-08-16 00:59 | XMS_ITS | Continuity of Care Document ---
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 Discharge Disposition: A-D/C Home Attending Physician: Austin Bills MD Admitting Physician: Austin Bills MD Referring Physician: Not on Staff, Referring MD Allergies, Adverse Reactions, Alerts Substance Reaction [...] 06/17/14 Not Given Patient Refuses 1Result Comment: [facility]# [id number] 2Location History: [facility] EMPLOYER 3Admin Note: DECLINED 4Admin Note: VIS Given Flulaval 5Result Comment: [08/12/2015] [facility]# [id number] EXP DATE 11/20/2016 6Admin Note: per records [...] 06/19/19 10:21:28 EDT, Route to Pharmacy Electronically, [id number], [facility] #[id number] Start Date: 06/19/19 Status: Ordered diclofenac sodium 50 mg oral delayed release tablet 1 tablet = 50 mg, By Mouth, 3 times a day, with food; do not take with other NSAIDs (ex.: ibuprofen, aleve), # 42 tablet, 0 Refills, Maintenance, 09/03/19 9:25:34 EST, EC Tablet, [facility][id number], 180, cm, 09/03/19 8:43:49 EST, Height Start [...] Most recent to oldest [Reference Range]: 1 Oxygen Saturation [94-100 %] 97 % (10/18/19 10:57 AM) Pulse Rate [55-90 bpm] 98 bpm *H* (10/18/19 10:57 AM) Blood Pressure [90-138/55-84 mm Hg] 137/ 86mm Hg (10/18/19 10:57 AM) Respiratory Rate [16-30 br/min] 18 br/mi n (10/18/19 10:57 AM) Temperature [96.8-100.4 DegF] 98.0 DegF (10/18/19 10:57 AM) Mode of Delivery (Oxygen) Room air (10/18/19 10:57 AM) Blood pressure sites Arm, left (10/18/19 10:57 AM) Temperature Route Oral (10/18/19 10:57 AM) Social History Social History Type Response Smoking Status Former smoker entered on: 08/28/17 Sex
--- OUTSIDE RECORDS SUMMARY | 2023-08-16 00:59 | XMS_ITS | Continuity of Care Document ---
Author Name Unknown Organization [facility] [place] [facility] Address [address] [place] [address]- Care Team Providers Care Mapping Engineer Name Role Phone Camila Virk MD Primary Care Physician [id number] Date(s): 06/22/20 - 06/29/20 [facility] Adult Medicine [address] [place] [address]- Attending Physician: Camila Virk MD Allergies, Adverse [...] 06/17/14 Not Given Patient Refuses 1Result Comment: [facility]# [id number] 2Location History: [facility] EMPLOYER 3Admin Note: DECLINED 4Admin Note: VIS Given Flulaval 5Result Comment: [08/12/2015] [facility]# [id number] EXP DATE 11/20/2016 6Admin Note: per records Medications Ambien 10 mg oral tablet 1 tablet = 10 mg, By Mouth, Daily at bedtime, PRN for sleep, for 30 days, dx: insomnia. Pt takes this medication 20 out of 30 days, # 20 tablet, 5 Refills, Acute 01/10/21 15:58:00 EDT, 07/14/20 15:58:00 EDT, Tablet, [email or web address][id number], 180, c... Start Date: 07/14/20 Stop Date: 01/10/21 Status: Ordered citalopram 40 mg oral tablet 40 mg, 1, tablet, By Mouth, Daily, # 30 tablet, Refills 5, Tot. Refills 5, Maintenance, 05/28/20 14:12:00 EDT, Route to Pharmacy Electronically, [email or web address] #[id number], 180, cm, 09/03/19 8:43:00EST, Height Start Date: 05/28/20 Status: Ordered diclofenac sodium 50 mg oral delayed release tablet 1 tablet = 50 mg, By Mouth, 3 times a day, with food; do not take with other NSAIDs (ex.: ibuprofen, aleve), # 42 tablet, 0 Refills, Maintenance, 09/03/19 9:25:34 EST, EC Tablet, [facility]#[id number], 180, cm, 09/03/19 8:43:49 EST, Height Start [...] oldest [Reference Range]: 1 Height 180 cm (06/22/20 2:22 PM) Social History Social History Type Response Smoking Status Former smoker entered on: 08/28/17 Sex
--- OUTSIDE RECORDS SUMMARY | 2023-08-16 00:59 | XMS_ITS | Continuity of Care Document ---
Author Name Unknown Organization [facility] Address [address] [place] [address]- Care Team Providers Care Starting Gate Driver Name Role Phone Camila Virk MD Primary Care Physician [phone] Encounter [facility] Date(s): 09/03/19 - 09/10/19 [facility] [address] [place] [address]- Encounter Diagnosis Thoracic back pain(Discharge Diagnosis) - 09/03/19 Attending Physician: Ana Kelly NP Referring Physician: Camila Virk MD Allergies, Adverse [...] 1Result Comment: [facility]# [id number] 2Location History: [facility] EMPLOYER 3Admin Note: DECLINED 4Admin Note: VIS Given Flulaval 5Result Comment: [08/12/2015] [facility]# [id number] EXP DATE 11/20/2016 6Admin Note: per records [...] 06/19/19 10:21:28 EDT, Route to Pharmacy Electronically, [id number], [facility] #[id number] Start Date: 06/19/19 Status: Ordered diclofenac sodium 50 mg oral delayed release tablet 1 tablet = 50 mg, By Mouth, 3 times a day, with food; do not take with other NSAIDs (ex.: ibuprofen, aleve), # 42 tablet, 0 Refills, Maintenance, 09/03/19 9:25:34 EST, EC Tablet, [email or web address][id number], 180, cm, 09/03/19 8:43:49 EST, Height Start Date: 09/03/19 Stop Date: 09/17/19 Status: Ordered Problem List Condition Effective Dates Status Health Status Inform ant Anxiety(Confirmed) Active Attention deficit hyperactiv ity disorder(Confirmed) Active Exposure to hepatitis C(Confirmed) Active H/O: alcohol abuse(Confirmed) Active Insomnia, Unspecified(Confirmed) Active Opiate abuse, episodic(Confirmed) Active Panic disorder without agora phobia with moderate panic attacks(Confirmed) Active Diagnosis Diagnosis Type Effective Dates Health Status Cl inical Service Informant Thoracic back pain Discharge Diagnosis 09/03/19 Vital Signs Most recent to oldest [Reference Range]: 1 Height 180 cm (09/03/19 8:43 AM) Weight 80.6 kg (09/03/19 8:43 AM) Oxygen Saturation [94-100 %] 99 % (09/03/19 8:43 AM) Pulse Rate [55-90 bpm] 76 bpm (09/03/19 8:43 AM) Body Mass Index [18.5-24.99] 24.88 (09/03/19 8:43 AM) Blood Pressure [90-138/55-84 mm Hg] 124/ 80mm Hg (09/03/19 8:43 AM) Respiratory Rate [16-30 br/min] 17 br/mi n (09/03/19 8:43 AM) Temperature [96.8-100.4 DegF] 97.6 DegF (09/03/19 8:43 AM) Liters per Minute 0 L/min (09/03/19 8:43 AM) Mode of Delivery (Oxygen) Room air (09/03/19 8:43 AM) Blood pressure sites Arm, left (09/03/19 8:43 AM) Temperature Route Temporal (09/03/19 8:43 AM) Weight Obtained Via Standing scale (09/03/19 8:43 AM) Social History Social History Type Response Smoking Status Former smoker entered on: 08/28/17 Sex
--- OUTSIDE RECORDS SUMMARY | 2023-08-16 00:59 | XMS_ITS | Continuity of Care Document ---
Author Name Unknown Organization [facility] [place] [facility] Address [address] [place] [address]- Care Team Providers Care Vine Pruner Name Role Phone Camila Virk MD Primary Care Physician [phone] [id number] Date(s): 09/20/19 - 01/18/20 [email or web address] Adult Medicine [address] [place] [address]- Attending Physician: Camila Virk MD Allergies, Adverse [...] 06/17/14 Not Given Patient Refuses 1Result Comment: [facility]# [id number] 2Location History: [facility] EMPLOYER 3Admin Note: DECLINED 4Admin Note: VIS Given Flulaval 5Result Comment: [08/12/2015] [facility]# [id number] EXP DATE 11/20/2016 6Admin Note: per records Medications Ambien 10 mg oral tablet 1 tablet = 10 mg, By Mouth, Daily at bedtime, PRN for sleep, for 30 days, dx: insomnia, # 30 tablet, 5 Refills, Acute 07/14/20 15:58:00 EDT, 01/16/20 15:58:00 EDT, Tablet, [facility] #[id number], 180, cm, 09/03/19 8:43:00 EST, Height Start Date: 01/16/20 Stop Date: 07/14/20 Status: Ordered citalopram 40 mg oral tablet 40 mg, 1, tablet, By Mouth, Daily, # 30 tablet, Refills 11, Tot. Refills 11, Maintenance, 06/19/19 10:21:28 EDT, Route to Pharmacy Electronically, [id number], [facility] #[id number] Start Date: 06/19/19 Status: Ordered diclofenac sodium 50 mg oral delayed release tablet 1 tablet = 50 mg, By Mouth, 3 times a day, with food; do not take with other NSAIDs (ex.: ibuprofen, aleve), # 42 tablet, 0 Refills, Maintenance, 09/03/19 9:25:34 EST, EC Tablet, [facility]#[id number], 180, cm, 09/03/19 8:43:49 EST, Height Start [...]
--- OUTSIDE RECORDS SUMMARY | 2023-08-16 00:59 | XMS_ITS | Continuity of Care Document ---
Author Name Unknown Organization [facility] [place] [facility] Address [address] [place] [address]- Care Team Providers Care Workforce Manager Name Role Phone Camila Virk MD Primary Care Physician Encounter [facility] Date(s): 03/29/21 - 04/05/21 [facility] Adult Medicine [address] [place] [address]- Attending Physician: Camila Virk MD Allergies, Adverse [...] [facility]# [id number] 2Location History: [facility] EMPLOYER 3Admin Note: DECLINED 4Admin Note: VIS Given Flulaval 5Result Comment: [08/12/2015] [facility]# [id number] EXP DATE 11/20/2016 6Admin Note: per records Medications citalopram 40 mg oral tablet 40 mg, 1, tablet, By Mouth, Daily, # 30 tablet, Refills 5, Tot. Refills 5, Maintenance, 03/29/21 10:22:00 EDT, Route to Pharmacy Electronically, [facility] #[id number], 180, cm, 03/29/21 9:52:00EDT, Height Start Date: 03/29/21 Status: Ordered zolpidem 10 mg oral tablet 1 tablet = 10 mg, By Mouth, Daily at bedtime, PRN as needed for insomnia, for 20 days, # 20 tablet,2 Refills, Acute 05/28/21 10:24:00 EDT, 03/29/21 10:24:00 EDT, Tablet, [facility] #[id number],Partial fill upon patient request if the prescripti... [...] oldest [Reference Range]: 1 Height 180 cm (03/29/21 9:52 AM) Social History Social History Type Response Smoking Status Former smoker entered on: 08/28/17 Sex
--- OUTSIDE RECORDS SUMMARY | 2023-08-16 00:59 | XMS_ITS | Continuity of Care Document ---
Author Name Unknown Organization [facility] [place] [facility] Address [address] [place] [address]- Care Team Providers Care Campus Administrator Name Role Phone Camila Virk MD Primary Care Physician [phone] Encounter [facility] Date(s): 04/07/22 - [facility]14/[facility] [address] [place], [place] [id number]- Attending Physician: Camila Virk MD Allergies, Adverse [...] Not Given Patient Refuses 1Result Comment: [facility]# [id number] 2Location History: [facility] EMPLOYER 3Admin Note: DECLINED 4Admin Note: VIS Given Flulaval 5Result Comment: [08/12/2015] [facility]# [id number] EXP DATE 11/20/2016 6Admin Note: per records Medications Ambien 5 mg oral tablet 1 tablet = 5 mg, By Mouth, Daily at bedtime, PRN as needed for insomnia, for 30 days, # 30 tablet, 2 Refills, Acute 07/04/22 10:48:00 EDT, 04/05/22 10:48:00 EDT, Tablet, Partial fill upon patient request if the prescription is for a schedule II opioid... Start Date: 04/05/22 Stop Date: 07/04/22 Status: Ordered Ambien 5 mg oral tablet 1 tablet = 5 mg, By Mouth, Daily at bedtime, PRN as needed for insomnia, for 30 days, # 30 tablet, 2 Refills, Acute 07/04/22 16:14:00 EDT, 04/05/22 16:14:00 EDT, Tablet, [facility] #[id number], Partial fill upon patient request if the prescriptio... Start Date: 04/05/22 Stop Date: 07/04/22 Status: Ordered citalopram 20 mg oral tablet 1 tablet = 20 mg, By Mouth, Daily, # 30 tablet, 5 Refills, Maintenance, 04/07/22 8:09:00 EDT, [facility] #[id number], Partial fill upon patient request if the prescription is for a schedule II opioid drug., 180, cm, 04/07/22 7:51:00 EDT, Height Start Date: 04/07/22 Stop Date: 10/04/22 Status: Ordered Multivitamin Daily, 0 Refills, Maintenance, [...] oldest [Reference Range]: 1 Height 180 cm (04/07/22 7:51 AM) Social History Social History Type Response Smoking Status Former smoker entered on: 08/28/17 Sex
--- OUTSIDE RECORDS SUMMARY | 2023-08-16 00:59 | XMS_ITS | Continuity of Care Document ---
Author Name Unknown Organization [facility] Address [address] [place] [address]- Care Team Providers Care It Sales Consultant Name Role Phone Camila Virk MD Primary Care Physician En[facility] Date(s): 04/07/22 - 05/07/22 [facility] [address] [place] [address]- Attending Physician: Gaviota Moe Admitting Physician: AdmGaviota [...] 06/17/14 Not Given Patient Refuses 1Result Comment: [facility]# [id number] 2Location History: [facility] EMPLOYER 3Admin Note: DECLINED 4Admin Note: VIS Given Flulaval 5Result Comment: [08/12/2015] [facility]# [id number] EXP DATE 11/20/2016 6Admin Note: per records [...] 07/04/22 16:14:00 EDT, 04/05/22 16:14:00 EDT, Tablet, [facility] #[id number], Partial fill upon patient request if the prescriptio... Start Date: 04/05/22 Stop Date: 07/04/22 Status: Ordered citalopram 20 mg oral tablet 1 tablet = 20 mg, By Mouth, Daily, # 30 tablet, 5 Refills, Maintenance, 04/07/22 8:09:00 EDT, [facility] #[id number], Partial fill upon patient request if the [...]
--- OUTSIDE RECORDS SUMMARY | 2023-08-16 00:59 | XMS_ITS | Continuity of Care Document ---
Author Name Unknown Organization [facility] [place] [facility] Address [address] [place] [address]- Care Team Providers Care Insurance Adviser Name Role Phone Camila Virk MD Primary Care Physician En[facility] [id number] Date(s): 06/22/20 - 07/22/20 [facility] [address] [place] [address]- Attending Physician: Gaviota Moe Admitting Physician: AdmtrGaviota Referring Physician: Admtr, ArDavonte Allergies, Adverse Reactions, Alerts Substance Reaction Severity [...] [facility]# [id number] 2Location History: [facility] EMPLOYER 3Admin Note: DECLINED 4Admin Note: VIS Given Flulaval 5Result Comment: [08/12/2015] [facility]# [id number] EXP DATE 11/20/2016 6Admin Note: per records Medications Ambien 10 mg oral tablet 1 tablet = 10 mg, By Mouth, Daily at bedtime, PRN for sleep, for 30 days, dx: insomnia. Pt takes this medication 20 out of 30 days, # 20 tablet, 5 Refills, Acute 01/10/21 15:58:00 EDT, 07/14/20 15:58:00 EDT, Tablet, [facility][id number], 180, c... Start Date: 07/14/20 Stop Date: 01/10/21 Status: Ordered citalopram 40 mg oral tablet 40 mg, 1, tablet, By Mouth, Daily, # 30 tablet, Refills 5, Tot. Refills 5, Maintenance, 05/28/20 14:12:00 EDT, Route to Pharmacy Electronically, [facility] #[id number], 180, cm, 09/03/19 8:43:00EST, Height Start Date: 05/28/20 Status: Ordered diclofenac sodium 50 mg oral delayed release tablet 1 tablet = 50 mg, By Mouth, 3 times a day, with food; do not take with other NSAIDs (ex.: ibuprofen, aleve), # 42 tablet, 0 Refills, Maintenance, 09/03/19 9:25:34 EST, EC Tablet, [facility][id number], 180, cm, 09/03/19 8:43:49 EST, Height Start [...]
--- OUTSIDE RECORDS SUMMARY | 2023-08-16 00:59 | XMS_ITS | Continuity of Care Document ---
Author Name Unknown Organization [facility] [place] [facility] Address [address] [place] [address]- Care Team Providers Care Mineral Industry Teacher Name Role Phone Camila Virk MD Primary Care Physician En[facility] Date(s): 02/16/21 - 03/24/21 [facility] [address] [place] [address]- Attending Physician: aCmila Virk MD Allergies, Adverse Reactions, Alerts Substance [...] Not Given Patient Refuses 1Result Comment: [facility]# [id number] 2Location History: [facility] EMPLOYER 3Admin Note: DECLINED 4Admin Note: VIS Given Flulaval 5Result Comment: [08/12/2015] [facility]# [id number] EXP DATE 11/20/2016 6Admin Note: per records Medications citalopram 40 mg oral tablet 40 mg, 1, tablet, By Mouth, Daily, # 30 tablet, Refills 5, Tot. Refills 5, Maintenance, 05/28/20 14:12:00 EDT, Route to Pharmacy Electronically, [facility] #[id number], 180, cm, 09/03/19 8:43:00EST, Height Start Date: 05/28/20 Status: Ordered diclofenac sodium 50 mg oral delayed release tablet 1 tablet = 50 mg, By Mouth, 3 times a day, with food; do not take with other NSAIDs (ex.: ibuprofen, aleve), # 42 tablet, 0 Refills, Maintenance, 09/03/19 9:25:34 EST, EC Tablet, [facility]#[id number], 180, cm, 09/03/19 8:43:49 EST, Height Start [...]
[2023-08-16] MEDS: Milk of Magnesia 30 ML ORAL.SUSP PO (01:16)
[2023-08-16] MEDS: bisacodyL 5 MG TABLET.DR 10 MG PO (01:16)
== END 2023-08-16 01:22 | disposition home or self-care (01) ==
PROVIDERS: Emergency Provider Internal Medicine; PCP Nurse Practitioner Family
DX: K59.00 Constipation, unspecified (principal)
CPT/HCPCS: 74018; 99283

== ENCOUNTER 2024-07-02 14:01 | Outpatient (AMB) | payer OTHER, SELFPAY ==
[2024-07-02 14:04] VITALS: BP 122/76; PULSE 73; O2SAT 98; BMI 27.3
--- NOTE | 2024-07-02 14:04 | MHC.PC.OV ---
Vital Signs 07/02/24 14:04 Height 5 ft 11 in Weight 196 lb BMI 27.3 BP 122/76 Blood Pressure Location Lt brachial Position Sitting Pulse 73 Pulse Source Pulse Oximeter Pulse Oximetry (%) 98 Oxygen Delivery Method Room Air Intake Visit Reasons: Annual PE Intake Note: pt is here for annual PE Knocker Off Required: No Accompanied by: Self / Same As Patient Allergies No Known Allergies [No Known Allergies*] Allergy (Verified 07/02/24 17:10) Medication List - Last Reconciled 07/02/24 by EDILBERTO Llanes bisacodyl (Dulcolax (bisacodyl)) 10 mg (2 x 5 mg) PO BEDTIME PRN buprenorphine ER (Sublocade) subcutaneously once a month; lorazepam mg PO magnesium hydroxide (Milk of Magnesia) 15 mL PO BEDTIME PRN Tobacco use date assessed: 07/02/24 Dental Screening Dental Screen Date: 07/02/24 Did you have a dental visit in the last 12 months?: Yes Did you have a dental problem in the last 6 months where you did not have access to dental care?: No Was dental information given to patient?: Patient has dentist HPI Annual PE HPI Details Pt is here for a PE. Will order labs. [facility] Surgical History No pertinent past surgical history Family History Mother Mental health disorder Maternal Grandmother Mental health disorder Father Mental health disorder Paternal Uncle Mental health disorder Social History Patient Tobacco Use Status: Former Tobacco user e-Cigarette/Vaping Use: Never Used Second Hand Smoke Exposure: No service: Yes Current occupational status: employed Current occupation: [employer] Current occupational exposures/hazards: Yes Cognitive needs: No Hearing needs: No Vision needs: No Questionnaire PHQ-9 Over the last 2 weeks, how often have you been bothered by any of the following problems? 1. Little interest or pleasure in doing things: not at all 2. Feeling down, depressed, or hopeless: not at all 3. Trouble falling or staying asleep, or sleeping too much: nearly every day 4. Feeling tired or having little energy: several days 5. Poor appetite or overeating: not at all 6. Feeling bad about yourself - or that you are a failure or have let yourself or your family down: not at all 7. Trouble concentrating on things, such as reading the newspaper or watching television: several days 8. Moving or speaking so slowly that other people could have noticed. Or the opposite - being so fidgety or restless that you have been moving around a lot more than usual: not at all 9. Thoughts that you would be better off or of hurting yourself in some way: not at all Total score: 5 Depression Screening Interpretation: Negative Depression Screening Done: Yes 13621 - PHQ-9 Billing: Yes Source: Developed by Drs. Esvin Segal, Nuzhat Lantigua, Huber Poole and colleagues, with an educational gustavo from [employer]. Thrive Questionnaire Date Thrive assessed: 07/02/24 I am a: Patient What is your living situation today?: I have a steady place to live Within the past 12 months, did the food you bought not last and you didn't have the money to get more?: Never true Within the past 12 months, did you worry whether your food would run out before you got money to buy more?: Never true Do you have trouble paying for medicines?: No Do you have trouble getting transportation to medical appointments?: No Do you have trouble paying your heating and electricity bill?: No Do you have trouble taking care of your child, family member or friend?: No Do you have trouble with day-to-day activities such as bathing, preparing meals, shopping, managing finances, etc.?: No Are you currently unemployed and looking for a job?: I choose not to answer this question Are you interested in more education?: No Please select the resources that you would like help with: None Currently or been in a relationship where the following occur: No concerns reported THRIVE Score: 0 AUDIT C Alcohol Use Questionnaire (AUDIT-C) 1. How often do you have a drink containing alcohol?: 2-4 times a month 2. How many drinks containing alcohol do you have on a typical day when you are drinking?: 3 or 4 3. How often do you have six or more drinks on one occasion?: Less than monthly Total Score: 4 Score Reviewed/Action Taken: Yes KAUR-7 AMB Questionnaire KAUR-7 Date KAUR - 7 assessed: 07/02/24 Feeling nervous, anxious, or on edge: 1 = Several days Not being able to stop or control worryin = Several days Worrying too much about different things: 1 = Several days Trouble relaxin = Not at all Being so restless that it is hard to sit still: 1 = Several days Becoming easily annoyed or irritable: 1 = Several days Feeling afraid as if something awful might happen: 1 = Several days Total KAUR-7 score (0-4 normal; 5-9 mild; 10-14 moderate; 15-21 severe): 6 Source: Developed by Drs. Esvin Segal, Nuzhat Lantigua, Huber Poole and colleagues, with an educational gustavo from [employer]. KAUR-7 Assessment Billing KAUR-7 Assessment Tool: KAUR-7 Assessment 74634 Review of Systems Const Denies chills and Denies fever(s) Eyes Denies blurry vision ENT Denies vertigo, Denies dizziness and Denies sore throat Card Denies chest pain at rest, Denies chest pain with activity, Denies diaphoresis, Denies dyspnea and Denies dyspnea on exertion Resp Denies cough, Denies dyspnea, Denies dyspnea on exertion and Denies wheezing GI Denies abdominal pain, Denies melena, Denies hematochezia, Denies constipation, Denies diarrhea and Denies loose stools Denies hematuria Musc Denies numbness and Denies tingling Skin/Breast Denies lesions Neuro Denies vertigo, Denies dizziness, Denies numbness and Denies tingling Psych Denies anxiety, Denies depression, Denies homicidal ideation, Denies suicidal ideation and Denies other (substance abuse) Aller/Immun Denies wheezing Physical exam (Primary Care) Vital Signs: Last Vital Signs Pulse 73 07/02/24 14:04 BP 122/76 07/02/24 14:04 Pulse Ox 98 07/02/24 14:04 Oxygen Delivery Method Room Air 07/02/24 14:04 BMI result Body Mass Index 27.3 Tobacco/Smoking Status: Tobacco use Status Tobacco use date assessed 07/02/24 07/02/24 14:12 Patient Tobacco Use Status Former Tobacco user 07/02/24 14:12 e-Cigarette/Vaping Use Never Used 07/02/24 14:12 PHQ-9: PHQ-9 Score PHQ-9: Total score 5 07/02/24 14:33 Depression Screening Interpretation: Negative Thrive Assessment: Date of Thrive Assessment Date Thrive assessed 07/02/24 07/02/24 14:12 Currently or been in a relationship where the following occur: No concerns reported Const General: cooperative Nutritional Appearance: well nourished Orientation/consciousness: patient oriented x3 HENMT Head: Yes normal to inspection, Yes normocephalic and Yes atraumatic Ears: TM's normal bilaterally Eyes General: appearance normal, both eyes and all related structures Alignment and Position: alignment normal and position normal Neck Neck: Yes normal visual inspection, Yes no lymphadenopathy and Yes supple Resp Effort & Inspection: normal respiratory effort Auscultation: clear to auscultation bilaterally Cardio Rate: regular rate Rhythm: regular rhythm Heart sounds: S1 normal heart sound present, S2 normal heart sound present and no murmurs GI Palpation (GI): Soft to palpation and nontender Auscultation: normal bowel sounds Male General Exam: Yes normal external exam Penis: normal penis Scrotum: scrotum normal, testes descended bilaterally and no inguinal hernias Testes: no testicular mass Skin Rashes: no rashes Neuro General: patient oriented x3, moves all extremities, no focal motor deficits and deep tendon reflexes 2+ bilaterally Romberg Test: Negative Psych Appearance: grossly normal Mental Status: mental status grossly normal Speech and movement: Normal speech and movement present Affect: normal affect Attitude: cooperative Thought process: Normal thought process present Thought content: Normal thought content present Insight: Good insight present (Psych) Judgement: Good judgement present (Psych) Coding Level of Care Code Est Pt Prev Care 18-39y(08849) Diagnoses Physical exam Z00.00 Additional Codes KAUR-7 Assessment Billing - KAUR-7 Assessment Tool: KAUR-7 Assessment 25784 ([id number]) Assessment & Plan Assessment & Plan (1) Physical exam: Code(s): Z00.00 - Encounter for general adult medical examination without abnormal findings Category: Medical Plan: Labs ordered Plan The patient agreed to the use of a medical records supervisor for this encounter. Scribed for EDILBERTO Albright by hermes Bills scribe, on 07/02/2024 at 14:30 EST. Orders: Orders Complete Blood Count Auto Diff Today Z00.00 - Encounter for general adult medical examination without abnormal findings Lipid Panel Today Z00.00 - Encounter for general adult medical examination without abnormal findings Comprehensive [place]. Panel Fast Today Z00.00 - Encounter for general adult medical examination without abnormal findings TSH reflex Free T4 Today Z00.00 - Encounter for general adult medical examination without abnormal findings UA CC w/rflx Micro + Cult Today Z00.00 - Encounter for general adult medical examination without abnormal findings
== END 2024-07-02 16:07 | disposition home or self-care (01) ==
PROVIDERS: PCP Nurse Practitioner Family; Visit Provider Nurse Practitioner Family
DX: Z00.00 Encounter for general adult medical examination without abnormal findings (principal)

== ENCOUNTER → 2024-07-02 14:01 | Outpatient (BNVA) | payer OTHER, SELFPAY | PROVIDERS: PCP Nurse Practitioner Family; Visit Provider Nurse Practitioner Family | DX: Z00.00 Encounter for general adult medical examination without abnormal findings (principal) | CPT/HCPCS: 96127 ==

== ENCOUNTER → 2024-08-26 12:58 | Outpatient (BNVA) | payer OTHER, SELFPAY | PROVIDERS: PCP Nurse Practitioner Family; Visit Provider Physician Assistant Medical | DX: Z13.89 Encounter for screening for other disorder (principal) | CPT/HCPCS: 99203 ==

== ENCOUNTER → 2024-09-02 13:11 | Outpatient (BNVA) | payer OTHER, SELFPAY | PROVIDERS: PCP Nurse Practitioner Family; Visit Provider Physician Assistant Medical | DX: Z13.89 Encounter for screening for other disorder (principal) | CPT/HCPCS: 99213 ==

== ENCOUNTER 2025-07-10 14:59 | Outpatient (AMB) | payer OTHER, SELFPAY ==
[2025-07-10 15:05] VITALS: BP 128/88; PULSE 94; RESP 16; O2SAT 98
--- NOTE | 2025-07-10 15:05 | MHC.PC.OV ---
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 He denies experiencing any chest pain, dyspnea, abdominal pain, hematochezia, constipation, or diarrhea. He also denies any suicidal or homicidal ideation. The patient reports experiencing intermittent episodes of elevated blood pressure. 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 Health Maintenance Social History Review of Systems - Cardiovascular: Denies chest pain - Respiratory: Denies dyspnea - Gastrointestinal: Denies abdominal pain, hematochezia, constipation, diarrhea - Psychiatric: Denies suicidal ideation, homicidal ideation Physical Exam General: Cooperative, healthy appearing, comfortable, no acute distress and well developed Orientation: Patient oriented x3 Limitations: No limitations Head: Normal to inspection Ears: Hearing grossly normal bilaterally Nose: Normal external nose present Face and sinus: Normal facial exam Eyes: Appearance normal, both eyes and all related structures Neck: Normal visual inspection and Yes full ROM Respiratory: Normal respiratory effort and able to speak in complete sentences. Clear to auscultation bilaterally Cardiovascular: Regular rate and rhythm. Normal S1 and S2 GI: Normal to inspection. Soft to palpation and nontender : testicles without masses/lesions and no hernias appreciated Skin: No rashes or lesions noted Neuro: Patient oriented x3 Extremities: Normal to inspection Results Plan 1. Intermittent Hypertension The patient reports intermittent episodes of elevated blood pressure. He will have his blood pressure manually checked by nurses at his workplace and provide these readings for further evaluation. Consideration for initiating antihypertensive medication will be based on these readings. Discussion Notes I discussed with the patient the importance of monitoring his blood pressure regularly and the potential need for medication if readings remain elevated. Patient Instructions - Monitor blood pressure regularly and report readings. - Follow up with readings to determine if medication is necessary. [facility] Surgical History No pertinent past surgical history Family History Mother Mental health disorder Maternal Grandmother Mental health disorder Father Mental health disorder Paternal Uncle Mental health disorder Social History Patient Tobacco Use Status: Former Tobacco user e-Cigarette/Vaping Use: Never Used Second Hand Smoke Exposure: No service: Yes Current occupational status: employed Current occupation: [employer] Current occupational exposures/hazards: Yes Cognitive needs: No Hearing needs: No Vision needs: No Questionnaire PHQ-9 Over the last 2 weeks, how often have you been bothered by any of the following problems? 1. Little interest or pleasure in doing things: not at all 2. Feeling down, depressed, or hopeless: not at all 3. Trouble falling or staying asleep, or sleeping too much: not at all 4. Feeling tired or having little energy: not at all 5. Poor appetite or overeating: not at all 6. Feeling bad about yourself - or that you are a failure or have let yourself or your family down: not at all 7. Trouble concentrating on things, such as reading the newspaper or watching television: more than half the days 8. Moving or speaking so slowly that other people could have noticed. Or the opposite - being so fidgety or restless that you have been moving around a lot more than usual: not at all 9. Thoughts that you would be better off or of hurting yourself in some way: not at all Total score: 2 Source: Developed by Drs. Esvin Segal, Nuzhat Lantigua, Huber Poole and colleagues, with an educational gustavo from [employer]. Thrive Questionnaire Date Thrive assessed: 07/02/24 I am a: Patient What is your living situation today?: I have a steady place to live Within the past 12 months, did the food you bought not last and you didn't have the money to get more?: Never true Within the past 12 months, did you worry whether your food would run out before you got money to buy more?: Never true Do you have trouble paying for medicines?: No Do you have trouble getting transportation to medical appointments?: No Do you have trouble paying your heating and electricity bill?: No Do you have trouble taking care of your child, family member or friend?: No Do you have trouble with day-to-day activities such as bathing, preparing meals, shopping, managing finances, etc.?: No Are you currently unemployed and looking for a job?: No Are you interested in more education?: No Please select the resources that you would like help with: None Currently or been in a relationship where the following occur: No concerns reported THRIVE Score: 0 AUDIT C Alcohol Use Questionnaire (AUDIT-C) 1. How often do you have a drink containing alcohol?: 2-3 times a week 2. How many drinks containing alcohol do you have on a typical day when you are drinking?: 1 or 2 3. How often do you have six or more drinks on one occasion?: Monthly Total Score: 5 Score Reviewed/Action Taken: Yes KAUR-7 AMB Questionnaire KAUR-7 Date KAUR - 7 assessed: 07/02/24 Feeling nervous, anxious, or on edge: 1 = Several days Not being able to stop or control worryin = Several days Worrying too much about different things: 1 = Several days Trouble relaxin = Several days Being so restless that it is hard to sit still: 1 = Several days Becoming easily annoyed or irritable: 0 = Not at all Feeling afraid as if something awful might happen: 1 = Several days Total KAUR-7 score (0-4 normal; 5-9 mild; 10-14 moderate; 15-21 severe): 6 Source: Developed by Drs. Esvin Segal, Nuzhat Lantigua, Huber Poole and colleagues, with an educational gustavo from [employer]. Physical exam (Primary Care) Vital Signs: Last Vital Signs Pulse 94 07/10/25 15:05 Resp 16 07/10/25 15:05 BP 128/88 07/10/25 15:05 Pulse Ox 98 07/10/25 15:05 Oxygen Delivery Method Room Air 07/10/25 15:05 Tobacco/Smoking Status: Tobacco use Status Tobacco use date assessed 07/02/24 07/10/25 15:08 Patient Tobacco Use Status Former Tobacco user 07/10/25 15:08 e-Cigarette/Vaping Use Never Used 07/10/25 15:08 PHQ-9: PHQ-9 Score PHQ-9: Total score 2 07/10/25 15:08 Thrive Assessment: Date of Thrive Assessment Date Thrive assessed 07/02/24 07/10/25 15:08 Currently or been in a relationship where the following occur: No concerns reported Coding Level of Care Code Est Pt Prev Care 18-39y(77912) Diagnoses Physical exam Z00.00 HTN (hypertension) I10 Assessment & Plan Assessment & Plan (1) Physical exam: Code(s): Z00.00 - Encounter for general adult medical examination without abnormal findings Category: Medical (2) HTN (hypertension): Code(s): I10 - Essential (primary) hypertension Category: Medical Plan . Orders: Orders Complete Blood Count Auto Diff Today Z00.00 - Encounter for general adult medical examination without abnormal findings UA CC w/rflx Micro + Cult Today Z00.00 - Encounter for general adult medical examination without abnormal findings Comprehensive [place]. Panel Fast Today Z00.00 - Encounter for general adult medical examination without abnormal findings TSH reflex Free T4 Today Z00.00 - Encounter for general adult medical examination without abnormal findings Lipid Panel Today Z00.00 - Encounter for general adult medical examination without abnormal findings
== END 2025-07-10 15:47 | disposition home or self-care (01) ==
LOC: HO.HMCC 15:00
PROVIDERS: PCP Nurse Practitioner Family; Visit Provider Nurse Practitioner Family
DX: Z00.00 Encounter for general adult medical examination without abnormal findings (principal); I10 Essential (primary) hypertension